=== PATIENT | male | born 1925 | race Caucasian/White ===

== ENCOUNTER → 2016-07-22 | Outpatient (CLI) | payer OTHER ==
--- NOTE | 2016-07-22 17:29 | DX ---
Chest, Two Views at 1155 hours History: Cough. Comparison: May 2012 Findings: Cardiac silhouette is within normal range. Old left fourth and fifth rib fractures again no omaira. 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 No pneumonia, varsha estive heart failure, pleural effusion, or pneumothorax. Atherosclerotic aorta. Bilateral peribronchi al thickening. Impression: 1. Bronchitis. 2. Atherosclerotic aorta. 3. No definite focal pneumonia.
== END ==
LOC: CIMAGING 11:48
PROVIDERS: ATTEND Internal Medicine
DX: J40 Bronchitis, not specified as acute or chronic (principal); I70.0 Atherosclerosis of aorta
CPT/HCPCS: 71020-PO

== ENCOUNTER 2016-07-26 10:15 | Emergency (ER) | payer OTHER ==
[2016-07-26 10:45] VITALS: BP 136/75; PULSE 67; RESP 14; TEMP 97.9; O2SAT 94
--- NOTE | 2016-07-26 12:00 | DX ---
Left rib series - 5 views total Indication: Left rib pain. Fall. Technique: PA chest and 3 oblique views of the left hemithorax. Comparison: 2 view chest dated July 22, 2016 Findings: An acute nondisplaced anterior left seventh rib fracture, near the costochondral junction, is demonstrated on the steep oblique views. No other acute fractures. Old posterior left fourth and f ifth rib fractures are unchanged. No pneumothorax, atelectasis or effusion. Mild diffuse peribronchia l thickening and tortuous atherosclerotic aorta are unchanged. Impression: 1. Acute nondisplaced anterior left 7th rib fracture. 2. No pneumothorax.
--- NOTE | 2016-07-26 12:12 | UCPHY ---
H & P Time Seen by Provider: 07/26/16 10:50 Patient Type: Established HPI/ROS: 89-year-old male presents complaining of a fall landing on his left anterior chest and is concerned he may have a rib fracture. No fevers or chills, no nausea or vomiting, pain with deep inspiration. Denies other injuries at this time Review of systems General no fever no chills no weakness HEENT no eye pain no eye discharge. No eye redness, no sore throat Respiratory no cough, no shortness of breath Cardiac no chest pain, no peripheral edema GI no abdominal pain, no diarrhea, no constipation, no nausea, no vomiting no flank pain, no hematuria, no dysuria Musculoskeletal positive myalgias, no joint pain Heme no easy bruising, no easy bleeding Endo no polyuria, no polydipsia Skin no rashes, no pruritus Neuro no syncope, no dizziness, no headaches Psych is no suicidal ideation, no homicidal ideation Past Medical/Surgical History: Hyperlipidemia Hypertension BPH Social History: Denies alcohol or drug use Smoking Status: Former smoker Physical Exam: 89-year-old male alert and oriented no acute distress nontoxic appearance afebrile HEENT atraumatic normocephalic, extraocular muscles intact, anicteric Oropharynx negative for erythema negative exudate, tolerating her own secretions Neck supple no meningismus Lungs clear to auscultation bilaterally Chest no ecchymosis no crepitus positive tenderness to palpation left mid axillary line as well as lower anterior ribs Heart regular rate and rhythm without murmur rub or gallop Abdomen nondistended normoactive bowel sounds soft nontender Back no CVA tenderness, no step-offs, no spinal tenderness Extremities no cyanosis clubbing or edema Neuro alert and oriented, no focal deficits Constitutional: Initial Vital Signs Temperature (C) 36.6 C 07/26/16 10:41 Heart Rate 67 07/26/16 10:41 Respiratory Rate 14 07/26/16 10:41 Blood Pressure 136/75 H 07/26/16 10:41 O2 Sat (%) 94 07/26/16 10:41 O2 Delivery Mode Room Air Allergies/Adverse Reactions: hydromorphone HCl [From Dilaudid] Allergy (Verified 07/26/16 10:52) Home Medications: Medication Instructions Recorded Atorvastatin Calcium [Lipitor 40 40 mg PO HS 01/03/13 mg (*)] Clopidogrel Bisulfate [Plavix (*)] 75 mg PO DAILY 01/03/13 Garita-3 Fatty Acids [Fish Oil 1000 1,000 mg PO DAILY 01/03/13 mg (*)] Prazosin HCl [Minipress 5mg (*)] 5 mg PO HS 01/03/13 Valsartan [Diovan (*)] 160 mg PO DAILY 01/03/13 Aspirin [Aspirin 81mg (*)] 81 mg PO HS 10/22/15 Carvedilol [Coreg (*)] 12.5 mg PO BIDMEAL 10/22/15 Acetaminophen [Tylenol 325mg (*)] 650 mg PO Q4 PRN #0 tab 10/24/15 Hydrocodone/Acetaminophen [[place] 1 tab PO Q6H PRN #20 tab 07/26/16 5/325 (*)] Medical Decision Making - Diagnostics Imaging: Chest x-ray positive nondisplaced rib fracture left 7th rib ED Course/Re-evaluation: Patient seen and evaluated for left lower and mid axillary line chest pain after a fall Chest x-ray with left 7th rib fracture nondisplaced Impression Left 7th rib fracture Plan Pain medication Incentive spirometer Follow up with primary care physician Departure - Departure Disposition: Home, Routine, Self-Care Clinical Impression: Fracture, rib Condition: Good Instructions: Rib Fracture (ED) Referrals: Freida Esposito MD [Primary Care Provider] - As per Instructions Prescriptions: Hydrocodone/Acetaminophen [[place] 5/325 (*)] 1 tab PO Q6H PRN #20 tab PRN Reason: Pain, Moderate - PQRS PQRS Measurement: 134: Depression screening and followup, PRIME MD-PHQ2 (12 years and older) Over the last 2 weeks, how often have you been bothered by any of the following problems? 1. Feeling down, depressed, or hopeless? 2. Little interest or pleasure in doing things? Patient answered no to both 1 and 2 130: Documentation of medications. Reviewed all patient medications, doses, route and frequency. 226: Do you smoke? No. 47: 65 and older: Advanced care planning. Patient designates surrogate decision maker as spouse.. [Patient has advanced directive.] 51: 18 years old and older with diagnosis of COPD, spirometry performance. [Patient has no history of COPD 52: 18 years old and older with COPD and symptoms of COPD or FEV1<60% predicted prescribed a B Agonist. [Spirometry not performed; equipment not available.]
== END 2016-07-26 12:28 | disposition home or self-care (01) ==
LOC: CED 10:15
DX: S22.32XA Fracture of one rib, left side, initial encounter for closed fracture (principal); W19.XXXA Unspecified fall, initial encounter; I10 Essential (primary) hypertension; E78.5 Hyperlipidemia, unspecified; Z87.891 Personal history of nicotine dependence
CPT/HCPCS: 71111; G0463

== ENCOUNTER → 2016-08-24 | Outpatient (CLI) | payer OTHER | LOC: FIMAGING 14:41 | PROVIDERS: ATTEND Orthopaedic Surgery Hand Surgery | DX: M79.641 Pain in right hand (principal); R93.6 Abnormal findings on diagnostic imaging of limbs ==

== ENCOUNTER → 2016-08-25 | Outpatient (CLI) | payer OTHER | LOC: FIMAGING 16:03 | PROVIDERS: ATTEND Orthopaedic Surgery Hand Surgery | DX: M25.841 Other specified joint disorders, right hand (principal); M95.9 Acquired deformity of musculoskeletal system, unspecified; M77.9 Enthesopathy, unspecified ==

== ENCOUNTER → 2016-09-05 | Outpatient (CLI) | payer OTHER | LOC: CIMAGING 15:32 | PROVIDERS: ATTEND Internal Medicine | DX: M79.89 Other specified soft tissue disorders (principal) | CPT/HCPCS: 93971-PO ==

== ENCOUNTER → 2016-12-02 | Outpatient (CLI) | payer OTHER | LOC: CIMAGING 10:24 | PROVIDERS: ATTEND Internal Medicine | DX: J98.4 Other disorders of lung (principal); R91.1 Solitary pulmonary nodule | CPT/HCPCS: 71020-PO ==

== ENCOUNTER → 2016-12-19 | Outpatient (CLI) | payer OTHER | LOC: CIMAGING 10:13 | PROVIDERS: ATTEND Internal Medicine | DX: R91.1 Solitary pulmonary nodule (principal); R91.8 Other nonspecific abnormal finding of lung field; R93.3 Abnormal findings on diagnostic imaging of other parts of digestive tract | CPT/HCPCS: 71250-PO ==

== ENCOUNTER → 2016-12-24 | Outpatient (CLI) | payer OTHER ==
[~2016-12-24] MED LIST: IOPAMIDOL (ISOVUE-300) 100 ML BTL ONE
== END ==
LOC: CIMAGING 12:28
PROVIDERS: ATTEND Nurse Practitioner
DX: R91.8 Other nonspecific abnormal finding of lung field (principal); J90 Pleural effusion, not elsewhere classified; K57.30 Diverticulosis of large intestine without perforation or abscess without bleeding; M89.9 Disorder of bone, unspecified; I25.10 Atherosclerotic heart disease of native coronary artery without angina pectoris
CPT/HCPCS: 71260; 74177; Q9967

== ENCOUNTER 2017-01-05 09:54 | Day surgery (SDC) | payer OTHER ==
[2017-01-05] MEDS ORDERED: MIDAZOLAM 2 MG/2 ML VIAL ONE (10:13)
[2017-01-05] MEDS ORDERED: fentaNYL 100 MCG/2 ML INJ ONE (10:13)
[2017-01-05] MEDS ORDERED: FLUMAZENIL 0.5 MG/5 ML MDV IVP ONE (10:14)
[2017-01-05] MEDS ORDERED: NALOXONE HCL 0.4 MG/ML INJ ONE (10:14)
[2017-01-05 10:40] LABS: HEMATOCRIT 41.4 % (40.0-51.0)
[2017-01-05] MEDS ORDERED: NS 1,000 ML IV SCH (11:15)
[2017-01-05] MEDS ORDERED: ACETAMINOPHEN 325 MG TAB PO ONE (14:15)
== END 2017-01-05 15:50 | disposition home or self-care (01) ==
LOC: FIMAGING 09:54
PROVIDERS: ATTEND Nurse Practitioner
PROC: 0BBJ3ZX Excision of Left Lower Lung Lobe, Percutaneous Approach, Diagnostic (ICD-10-PCS; principal; 2017-01-05 12:55)
DX: C34.31 Malignant neoplasm of lower lobe, right bronchus or lung (principal)
CPT/HCPCS: J2250; J2310; J3010